=== PATIENT | male | born 1970 | race Caucasian/White ===

== ENCOUNTER 2024-07-28 10:43 | Day surgery (SDC) | payer MEDICARE ==
[2024-07-28] MEDS ORDERED: LIDOCAINE HCL 2% 100 MG/5 ML IJ ONE (10:44)
[2024-07-28] MEDS ORDERED: APRESOLINE 20 MG/ML INJ IV PRN (11:45)
[2024-07-28] MEDS ORDERED: APRESOLINE 20 MG/ML INJ ONE (11:50)
[2024-07-28] MEDS ORDERED: propofoL IV ONE (12:31)
--- NOTE | 2024-07-28 20:55 | XRAY ---
Indication: Bilateral L4-S1 MBB. Intraoperative fluoroscopy provided for 7 seconds. Single digital spot image submitted for interpretation demonstrates posterior needle tips projecting over expected left and right L4-S1 nerve roots. Correlate with intraoperative findings/report.
--- NOTE | 2024-07-28 21:54 | XRAY ---
7 seconds of fluoroscopy was used in surgery for a bilateral L4-S1 MBB.
== END 2024-07-28 13:03 | disposition home or self-care (01) ==
LOC: SDC-PAIN 10:43
PROVIDERS: ATTEND Psychiatry & Neurology Pain Medicine
DX: M47.817 Spondylosis without myelopathy or radiculopathy, lumbosacral region (principal)
CPT/HCPCS: 64493; 64494; 72020; 77002; J0360; J2704

== ENCOUNTER 2024-08-17 12:28 | Day surgery (SDC) | payer MEDICARE ==
[2024-08-17] MEDS ORDERED: BUPIVACAINE 0.5% VIAL IJ ONE (12:29)
[2024-08-17] MEDS ORDERED: propofoL IV ONE (14:39)
--- NOTE | 2024-08-17 16:27 | XRAY ---
Indication: Bilateral L4-S1 MBB. Intraoperative fluoroscopy provided for 10 seconds. Single digital spot image submitted for interpretation demonstrates posterior needle tips projecting over expected left and right L4-S1 nerve roots. Correlate with intraoperative findings/report.
--- NOTE | 2024-08-17 17:09 | XRAY ---
10 seconds of fluoroscopy was used in surgery for a bilateral L4-S1 MBB.
== END 2024-08-17 15:07 | disposition home or self-care (01) ==
LOC: SDC-PAIN 12:28
PROVIDERS: ATTEND Psychiatry & Neurology Pain Medicine
DX: M47.816 Spondylosis without myelopathy or radiculopathy, lumbar region (principal)
CPT/HCPCS: 64493; 64494; 72020; 77002; J2704

== ENCOUNTER 2024-09-14 11:36 | Day surgery (SDC) | payer MEDICARE ==
[2024-09-14] MEDS ORDERED: LIDOCAINE HCL 1% AMPUL 5 ML IJ ONE (11:37)
[2024-09-14] MEDS ORDERED: BUPIVACAINE 0.5% VIAL IJ ONE (11:37)
[2024-09-14] MEDS ORDERED: Depo-Medrol 40 MG/ML IM ONE (11:37)
[2024-09-14] MEDS ORDERED: Lactated Ringers 500 ML IV ONE (12:51)
[2024-09-14] MEDS ORDERED: propofoL IV ONE (13:53)
--- NOTE | 2024-09-14 16:31 | XRAY ---
Indication: Left L4-S1 RFA. Intraoperative fluoroscopy provided for 17 seconds. 4 digital spot image submitted for interpretation demonstrates posterior needle tips projecting over expected left L4-S1 nerve roots. Correlate with intraoperative findings/report.
--- NOTE | 2024-09-14 16:45 | XRAY ---
17 seconds of fluoroscopy was used in surgery for a left L4-S1 RFA.
== END 2024-09-14 14:24 | disposition home or self-care (01) ==
LOC: SDC-PAIN 11:36
PROVIDERS: ATTEND Psychiatry & Neurology Pain Medicine
DX: M47.817 Spondylosis without myelopathy or radiculopathy, lumbosacral region (principal)
CPT/HCPCS: 64635; 64636; 72100; J2704

== ENCOUNTER 2024-09-21 10:56 | Day surgery (SDC) | payer MEDICARE ==
[2024-09-21] MEDS ORDERED: Depo-Medrol 40 MG/ML IM ONE (10:57)
[2024-09-21] MEDS ORDERED: LIDOCAINE HCL 1% AMPUL 5 ML IJ ONE (10:57)
[2024-09-21] MEDS ORDERED: BUPIVACAINE 0.5% VIAL IJ ONE (10:57)
[2024-09-21] MEDS ORDERED: propofoL IV ONE (13:11)
--- NOTE | 2024-09-21 14:49 | XRAY ---
Indication: Right L4-S1 RFA. Intraoperative fluoroscopy provided for 15 seconds. 3 digital spot images submitted for interpretation demonstrates posterior needle tips projecting over expected right L4-S1 nerve roots. Correlate with intraoperative findings/report.
--- NOTE | 2024-09-21 14:55 | XRAY ---
15 seconds of fluoroscopy was used in surgery for a right L4-S1 RFA.
[2024-09-21] MEDS ORDERED: Lactated Ringers 1,000 ML IV ONE (16:10)
== END 2024-09-21 13:47 | disposition home or self-care (01) ==
LOC: SDC-PAIN 10:56
PROVIDERS: ATTEND Psychiatry & Neurology Pain Medicine
DX: M47.817 Spondylosis without myelopathy or radiculopathy, lumbosacral region (principal)
CPT/HCPCS: 64635; 64636; 72100; J2704